=== PATIENT | male | born 1970 | race Caucasian/White ===

== ENCOUNTER → 2020-12-22 | Outpatient (CLI) | payer OTHER | LOC: RAD 15:23 | DX: M47.812 Spondylosis without myelopathy or radiculopathy, cervical region (principal) ==

== ENCOUNTER 2021-12-25 17:01 | Emergency (ER) | payer BC ==
[2021-12-25] MEDS ORDERED: PREDNISONE20 MG PO (17:58)
[2021-12-25 18:19] VITALS: BP 114/89
== END 2021-12-25 18:12 | disposition home or self-care (01) ==
LOC: ED 17:01 → EDSEX 17:30 → ED 17:30
DX: T78.40XA Allergy, unspecified, initial encounter (principal); F17.200 Nicotine dependence, unspecified, uncomplicated

== ENCOUNTER → 2022-01-22 | Outpatient (CLI) | payer BC ==
[~2022-01-22] MED LIST: PREDNISONE20 MG PO
[2022-01-22 07:29] LABS: BASO # 0.03 K/mm3 (0.02-0.10); EOS # 0.11 K/mm3 (0.04-0.40); EOS % 1.9 % (1.0-5.0); HEMATOCRIT 43.8 % (37.0-47.0); HEMOGLOBIN 14.8 g/dL (12.5-16.0); LYMPH# 1.76 K/mm3 (1.50-4.00); MEAN CELL VOLUME 94 fl (78-100); MEAN CORPUSCULAR HEMOGLOBIN 32 pg (27-31); MEAN CORPUSCULAR HGB CONC 34 g/dL (33-37); MONO # 0.29 K/mm3 (0.20-0.80); NEU # 3.65 K/mm3 (1.40-6.50); PLATELET COUNT 232 K/mm3 (130-400); RED BLOOD COUNT 4.68 M/mm3 (4.10-5.30); RED CELL DISTRIBUTION WIDTH 11.9 % (11.5-14.5); WHITE BLOOD COUNT 5.9 K/mm3 (4.8-10.8)
[2022-01-22 08:39] LABS: POTASSIUM 4.6 mmol/L (3.5-5.1)
[2022-01-22 08:40] LABS: ALBUMIN 4.2 g/dL (3.5-5.0)
[2022-01-22 08:41] LABS: CALCIUM 9.6 mg/dL (8.3-10.5)
[2022-01-22 08:42] LABS: TOTAL PROTEIN 6.7 g/dL (6.4-8.3)
[2022-01-22 08:44] LABS: TOTAL BILIRUBIN 0.6 mg/dL (0.2-1.2)
[2022-01-22 16:52] LABS: T3 FREE 2.8 pg/mL (1.7-3.7)
== END ==
LOC: LAB 07:01
PROVIDERS: Nurse Practitioner
DX: R33.9 Retention of urine, unspecified (principal); R53.83 Other fatigue

== ENCOUNTER 2022-06-12 10:12 | Emergency (ER) | payer BC ==
[~2022-06-12] VITALS: Ht 162.6 cm; Wt 73.6 kg
[2022-06-12 10:59] LABS: BASO # 0.05 K/mm3 (0.02-0.10); EOS # 0.06 K/mm3 (0.04-0.40); EOS % 0.6 % (1.0-5.0); HEMATOCRIT 43.4 % (37.0-47.0); HEMOGLOBIN 14.7 g/dL (12.5-16.0); LYMPH# 2.58 K/mm3 (1.50-4.00); MEAN CELL VOLUME 91 fl (78-100); MEAN CORPUSCULAR HEMOGLOBIN 31 pg (27-31); MEAN CORPUSCULAR HGB CONC 34 g/dL (33-37); MEAN PLATELET VOLUME 10.2 fl (7.4-10.4); MONO # 0.66 K/mm3 (0.20-0.80); NEU # 7.03 K/mm3 (1.40-6.50); PLATELET COUNT 280 K/mm3 (130-400); RED BLOOD COUNT 4.75 M/mm3 (4.10-5.30); RED CELL DISTRIBUTION WIDTH 11.6 % (11.5-14.5); WHITE BLOOD COUNT 10.4 K/mm3 (4.8-10.8)
[2022-06-12 11:11] LABS: ALBUMIN 4.3 g/dL (3.5-5.0); POTASSIUM 4.2 mmol/L (3.5-5.1)
[2022-06-12 11:13] LABS: CALCIUM 9.8 mg/dL (8.3-10.5)
[2022-06-12 11:14] LABS: TOTAL PROTEIN 7.6 g/dL (6.4-8.3)
[2022-06-12 11:16] LABS: TOTAL BILIRUBIN 1.2 mg/dL (0.2-1.2)
[2022-06-12 11:39] LABS: URINE APPEARANCE CLEAR; URINE COLOR LIGHT YELLOW; URINE GLUCOSE NEGATIVE (NEGATIVE); URINE KETONE NEGATIVE (NEGATIVE); URINE PROTEIN(semi-quant) NEGATIVE (NEGATIVE)
[2022-06-12 11:40] LABS: URINE BILIRUBIN NEGATIVE (NEGATIVE); URINE BLOOD NEGATIVE (NEGATIVE); URINE LEUKOCYTE ESTERASE NEGATIVE (NEGATIVE); URINE NITRATE NEGATIVE (NEGATIVE); URINE UROBILINOGEN NORMAL (NORMAL); URINE WBC 0-1 /hpf (0-3)
[2022-06-12 12:06] LABS: ERYTHROCYTE SEDIMENTATION RATE 36 mm/hr (0-30)
[2022-06-12 15:13] VITALS: BP 138/78
== END 2022-06-12 15:16 | disposition short-term general hospital (02) ==
LOC: ED 10:12
PROVIDERS: Physician Assistant
DX: K57.32 Diverticulitis of large intestine without perforation or abscess without bleeding (principal); Z28.310 Unvaccinated for COVID-19
CPT/HCPCS: J2405; J2543; J3010; J7030; Q9967

== ENCOUNTER → 2022-10-23 | Outpatient (CLI) | payer BC ==
[~2022-10-23] MED LIST changes: +ZOLOFT25 M1 PO
== END ==
LOC: LAB 10:32
DX: R05.9 Cough, unspecified (principal); R51.9 Headache, unspecified; Z20.822 Contact with and (suspected) exposure to COVID-19

== ENCOUNTER 2022-12-23 12:15 | Emergency (ER) | payer BC ==
[2022-12-23] MEDS ORDERED: PAROXETINE HYDR10 MG PO (12:22)
[2022-12-23 12:50] LABS: BASO # 0.04 K/mm3 (0.02-0.10); EOS # 0.08 K/mm3 (0.04-0.40); EOS % 1.3 % (1.0-5.0); HEMATOCRIT 39.7 % (37.0-47.0); HEMOGLOBIN 13.6 g/dL (12.5-16.0); MEAN CELL VOLUME 94 fl (78-100); MEAN CORPUSCULAR HEMOGLOBIN 32 pg (27-31); MEAN CORPUSCULAR HGB CONC 34 g/dL (33-37); MEAN PLATELET VOLUME 10.2 fl (7.4-10.4); MONO # 0.38 K/mm3 (0.20-0.80); NEU # 3.12 K/mm3 (1.40-6.50); PLATELET COUNT 246 K/mm3 (130-400); RED BLOOD COUNT 4.21 M/mm3 (4.10-5.30); RED CELL DISTRIBUTION WIDTH 11.8 % (11.5-14.5); WHITE BLOOD COUNT 6.1 K/mm3 (4.8-10.8)
[2022-12-23 13:01] LABS: ALBUMIN 4.2 g/dL (3.5-5.0); POTASSIUM 3.8 mmol/L (3.5-5.1)
[2022-12-23 13:02] LABS: CALCIUM 9.9 mg/dL (8.3-10.5)
[2022-12-23 13:03] LABS: TOTAL PROTEIN 6.6 g/dL (6.4-8.3)
[2022-12-23 13:05] LABS: TOTAL BILIRUBIN 0.8 mg/dL (0.2-1.2)
[2022-12-23 13:46] LABS: URINE APPEARANCE CLEAR; URINE BILIRUBIN NEGATIVE (NEGATIVE); URINE BLOOD NEGATIVE (NEGATIVE); URINE COLOR YELLOW; URINE GLUCOSE NEGATIVE (NEGATIVE); URINE KETONE NEGATIVE (NEGATIVE); URINE LEUKOCYTE ESTERASE NEGATIVE (NEGATIVE); URINE MUCUS PRESENT (NOT PRESENT); URINE NITRATE NEGATIVE (NEGATIVE); URINE PROTEIN(semi-quant) TRACE (NEGATIVE); URINE UROBILINOGEN NORMAL (NORMAL); URINE WBC 0-1 /hpf (0-3)
[2022-12-23 14:19] VITALS: BP 112/82
== END 2022-12-23 14:10 | disposition home or self-care (01) ==
LOC: ED 12:15
PROVIDERS: Nurse Practitioner
DX: R10.32 Left lower quadrant pain (principal); R11.2 Nausea with vomiting, unspecified; F17.210 Nicotine dependence, cigarettes, uncomplicated; Z90.49 Acquired absence of other specified parts of digestive tract; Z87.442 Personal history of urinary calculi; Z28.310 Unvaccinated for COVID-19
CPT/HCPCS: J2405; J3010; Q9967

== ENCOUNTER 2024-02-09 13:03 | Emergency (ER) | payer BC ==
[~2024-02-09] VITALS: Ht 162.6 cm; Wt 75.0 kg
[~2024-02-09 13:03] MED LIST changes: +PAROXETINE HYDR10 MG PO
[2024-02-09 13:10] VITALS: BP 134/88
[2024-02-09] MEDS ORDERED: LISINOPRIL20 MG PO (13:28)
[2024-02-09] MEDS ORDERED: NAPROXEN500 MG PO (13:29)
[2024-02-09 13:57] LABS: BASO # 0.03 K/mm3 (0.02-0.10); EOS # 0.09 K/mm3 (0.04-0.40); EOS % 1.6 % (1.0-5.0); HEMATOCRIT 39.8 % (37.0-47.0); HEMOGLOBIN 13.3 g/dL (12.5-16.0); LYMPH# 2.18 K/mm3 (1.50-4.00); MEAN CELL VOLUME 95 fl (78-100); MEAN CORPUSCULAR HEMOGLOBIN 32 pg (27-31); MEAN CORPUSCULAR HGB CONC 33 g/dL (33-37); MEAN PLATELET VOLUME 9.9 fl (7.4-10.4); MONO # 0.38 K/mm3 (0.20-0.80); PLATELET COUNT 244 K/mm3 (130-400); RED BLOOD COUNT 4.21 M/mm3 (4.10-5.30); RED CELL DISTRIBUTION WIDTH 11.9 % (11.5-14.5); WHITE BLOOD COUNT 5.6 K/mm3 (4.8-10.8)
[2024-02-09 14:03] LABS: CALCIUM 9.7 mg/dL (8.3-10.5)
[2024-02-09 14:04] LABS: TOTAL PROTEIN 6.4 g/dL (6.4-8.3)
[2024-02-09 14:06] LABS: TOTAL BILIRUBIN 0.5 mg/dL (0.2-1.2)
[2024-02-09 14:15] LABS: URINE APPEARANCE CLEAR (CLEAR); URINE BILIRUBIN NEGATIVE (NEGATIVE); URINE BLOOD NEGATIVE (NEGATIVE); URINE COLOR YELLOW (YELLOW); URINE GLUCOSE NEGATIVE (NEGATIVE); URINE KETONE NEGATIVE (NEGATIVE); URINE LEUKOCYTE ESTERASE NEGATIVE (NEGATIVE); URINE NITRATE NEGATIVE (NEGATIVE); URINE PROTEIN(semi-quant) NEGATIVE (NEGATIVE); URINE WBC 0-1 /hpf (0-3)
[2024-02-09] MEDS ORDERED: Iohexol 300 - 100 ML VIAL IV ONE (15:27)
== END 2024-02-09 16:00 | disposition home or self-care (01) ==
LOC: ED 13:03
PROVIDERS: Physician Assistant
DX: N28.82 Megaloureter (principal); K57.90 Diverticulosis of intestine, part unspecified, without perforation or abscess without bleeding; L90.5 Scar conditions and fibrosis of skin; Z90.49 Acquired absence of other specified parts of digestive tract
CPT/HCPCS: Q9967

== ENCOUNTER → 2024-09-14 | Outpatient (CLI) | payer BC ==
[~2024-09-14] MED LIST changes: +LISINOPRIL20 MG PO; +NAPROXEN500 MG PO
== END ==
LOC: AMSURD 10:21
DX: R06.00 Dyspnea, unspecified (principal)